=== PATIENT | male | born 1980 | race Caucasian/White ===

== ENCOUNTER 2023-06-27 09:07 | Emergency (ER) | payer BC, SELFPAY ==
[2023-06-27] VITALS (9 sets, daily range): BP systolic 123–166; BP diastolic 80–96; PULSE 70–93; RESP 18–19; TEMP 36.7; O2SAT 97–99; BMI 26.6
--- NOTE | 2023-06-27 09:15 | XR_ITS ---
PROCEDURE INFORMATION: Exam: XR Right Foot Exam date and time: 06/27/2023 9:25 AM Age: 42 years old Clinical indication: Injury or trauma; Fall; Sprain or strain; Ankle and foot; Right TECHNIQUE: Imaging protocol: Radiologic exam of the right foot. Views: 3 or more views. COMPARISON: CR XR ANKLE RT MIN 3V 06/27/2023 9:23 AM FINDINGS: Bones/joints: Normal. Soft tissues: Normal. IMPRESSION: No acute findings.
--- NOTE | 2023-06-27 09:15 | XR_ITS ---
PROCEDURE INFORMATION: Exam: XR Right Ankle Exam date and time: 06/27/2023 9:23 AM Age: 42 years old Clinical indication: Injury or trauma; Fall; Sprain or strain; Ankle and foot; Right TECHNIQUE: Imaging protocol: Radiologic exam of the right ankle. Views: 3 or more views. COMPARISON: No relevant prior studies available. FINDINGS: Bones/joints: Normal. Soft tissues: Normal. IMPRESSION: No acute findings.
--- NOTE | 2023-06-27 09:19 | [facility].EDGENADL ---
Discharge Plan Disposition Patient Disposition: Home, Self-Care Condition: Good Prescriptions Prescriptions: No Action No Known Home Medications Referrals Follow up/Referrals: Bishop Alcaraz DO [Staff Physician] - See instructions (R foot/ankle sprain with significant difficulty ambulating) Chun Medina MD [Primary Care Provider] - See instructions Activity Restrictions/Add. Instructions Additional Instructions/Restrictions: You were evaluated in the emergency department for right foot/ankle pain. You do not have a fracture or dislocation, I believe it is likely sprained. You have been placed in an air splint and provided crutches to help you get around. Be sure to do range of motion exercises as discussed. Take Tylenol and ibuprofen every 6-8 hours, do not exceed the maximum daily doses on the bottles. Drink plenty of water and always eat a snack or meal each time you take these medications. You have also been referred to orthopedics for follow-up if you continue to have pain. Please make an appointment with your primary care physician for reevaluation in 2 to 3 days. Return to the emergency department with any new, worsening, or otherwise concerning symptoms. Clinical Impressions Clinical Impression: Acute pain of right foot Right ankle sprain Qualifiers: Encounter type: initial encounter Involved ligament of ankle: unspecified ligament Qualified Code(s): S93.401A - Sprain of unspecified ligament of right ankle, initial encounter Stand Alone Forms Stand Alone Forms: Work/School Release Discharge ED Provider: Russ Hua General Adult HPI General Chief complaint: Extremity Injury, Lower Stated complaint: WC10/31, pain in Rt foot Time Seen by Provider: 06/27/23 09:12 History of Present Illness HPI narrative: This otherwise healthy 42-year-old male presents to the emergency department with concerns of right foot pain after fall. He states he missed the bottom step on his ladder and landed funny on his right foot yesterday. He states he continued working despite severe pain in the foot but is unable to bear full weight on it. He is taking Tylenol and ibuprofen for pain which has not offered significant relief. He is ambulating with a cane today in order to not bear full weight on the right foot. He is able to wiggle his toes and has full sensation throughout. No other injury sustained in the accident. Related Data Home Medications Medication Instructions Recorded Confirmed No Known Home Medications 10/13/22 06/27/23 Allergies Allergy/AdvReac Type Severity Reaction Status Date / Time No Known Allergies Allergy Verified 10/13/22 08:34 [facility] Disclaimer: The information contained in this section may have been updated after the patient was seen, as this information can be updated by other users. Social History (Updated 10/18/22 @ 05:56 by Norm Bhatti APRN) Smoking Status: Current every day smoker alcohol intake: current current occupational status: employed Travel in the last 8 weeks: None ROS Obtained: Yes All systems reviewed & no additional complaints except as documented Constitutional Constitutional: Denies chills, Denies fever(s), Denies headache(s) and Denies weakness Eyes Eyes: Denies change in vision ENT Ears, Nose, Mouth, and Throat: Denies dizziness, Denies headache(s), Denies nasal congestion and Denies sore throat Cardiovascular Cardiovascular: Denies chest pain, Denies dyspnea and Denies leg edema Respiratory Respiratory: Denies cough and Denies dyspnea Gastrointestinal Gastrointestingal: Denies constipation, diarrhea, nausea or vomiting Genitourinary Male Genitourinary: Denies difficulty urinating Musculoskeletal Musculoskeletal: Reports arthralgias (Right foot pain), Reports joint swelling (Mild right foot swelling and bruising), Denies myalgias, Denies numbness and Denies tingling Integumentary/Breasts Skin/Breast: Denies change in pigme
== END 2023-06-27 11:06 | disposition home or self-care (01) ==
PROVIDERS: Emergency Provider Emergency Medicine; PCP Emergency Medicine
DX: S93.401A Sprain of unspecified ligament of right ankle, initial encounter (principal); M79.671 Pain in right foot; F17.210 Nicotine dependence, cigarettes, uncomplicated; W11.XXXA Fall on and from ladder, initial encounter
CPT/HCPCS: 73610; 73630; 99284